=== PATIENT | female | born 1980 | race Two or more races ===

== ENCOUNTER 2018-07-11 11:13 | Emergency (ER) | payer OTHER ==
[2018-07-11] MEDS ORDERED: NORMAL SALINE 1000 ML 1,000 ML IV ONE (11:20)
[2018-07-11 11:36] LABS: ABSOLUTE BASOPHILS # (AUTO) 0.1 10^3/uL (0.0-0.2); ABSOLUTE EOSINOPHILS # (AUTO) 0.2 10^3/uL (0.0-0.6); ABSOLUTE LYMPHOCYTES (AUTO) 2.2 10^3/uL (0.5-4.7); ABSOLUTE MONOCYTES (AUTO) 1.2 10^3/uL (0.1-1.4); ABSOLUTE NEUT (AUTO) 4.2 10^3/uL (1.7-8.2); BASOPHILS % (AUTO) 0.7 % (0-2); EOSINOPHILS % (AUTO) 2.6 % (0-6); HEMOGLOBIN 10.9 g/dL (12.0-15.5); MEAN CORPUSCULAR HEMOGLOBIN 23.7 pg (27.0-33.4); MEAN CORPUSCULAR HGB CONC 32.9 g/dL (32.0-36.0); MEAN CORPUSCULAR VOLUME 72 fl (80-97); MONOCYTES % (AUTO) 15.5 % (3-13); PLATELET COUNT 211 10^3/uL (150-450); RED BLOOD COUNT 4.57 10^6/uL (3.72-5.28); RED CELL DISTRIBUTION WIDTH 17.7 % (11.5-14.0); SEGMENTED NEUTROPHILS % (AUTO) 53.2 % (42-78); TOTAL CELLS COUNTED % (AUTO) 100 %; WHITE BLOOD COUNT 7.8 10^3/uL (4.0-10.5)
[2018-07-11 11:55] LABS: ALANINE AMINOTRANSFERASE 23 U/L (9-52); ALBUMIN 4.3 g/dL (3.5-5.0); ALKALINE PHOSPHATASE 60 U/L (38-126); ANION GAP 10 (5-19); ASPARTATE AMINO TRANSFERASE 23 U/L (14-36); BILIRUBIN,DIRECT 0.1 mg/dL (0.0-0.4); BILIRUBIN,TOTAL 0.2 mg/dL (0.2-1.3); BLOOD UREA NITROGEN 13 mg/dL (7-20); CALCIUM 9.2 mg/dL (8.4-10.2); CARBON DIOXIDE 26 mmol/L (22-30); CHLORIDE 103 mmol/L (98-107); GLUCOSE 108 mg/dL (75-110); POTASSIUM 3.7 mmol/L (3.6-5.0); SODIUM 138.5 mmol/L (137-145)
[2018-07-11 13:16] LABS: APPEARANCE,URINE SLIGHTLY-CLOUDY; BILIRUBIN,URINE NEGATIVE (NEGATIVE); COLOR,URINE YELLOW; GLUCOSE, URINE NEGATIVE (NEGATIVE); KETONES,URINE NEGATIVE (NEGATIVE); LEUKOCYTE ESTERASE,URINE NEGATIVE (NEGATIVE); NITRITE,URINE NEGATIVE (NEGATIVE); PROTEIN,URINE NEGATIVE (NEGATIVE); URINE SPECIFIC GRAVITY 1.016; UROBILINOGEN,URINE NEGATIVE mg/dL (<2.0)
--- NOTE | 2018-07-11 13:30 | ER Document Report ---
ED General - General Chief Complaint: Syncope Stated Complaint: DIZZINESS Time Seen by Provider: 07/11/18 11:19 Notes: Patient is a 38-year-old female presents to the emergency department for syncope. Patient was observing a blood lab draw when she states she was standing. States she got lightheaded and dizzy had a generalized headache and sat down. States at that time she noted generalized weakness, staff around her stated she turned pale and had a syncopal episode. Staff states patient was potentially unresponsive for "only like 5 seconds." Patient states she has had generalized cough and congestion for the last 5 days. Is denying any fever, nausea, vomiting, diarrhea, dysuria, vaginal discharge. Patient states she does have a history of anemia typically takes iron and has been taking as prescribed. Patient is unsure of the last time she was at her primary care provider. Allergies: None Last menstrual period: 06/29/2018 TRAVEL OUTSIDE OF THE [place] IN LAST 30 DAYS: No Past Medical History - General Information source: Patient - Social History Smoking Status: Never Smoker Family History: Reviewed & Not Pertinent Review of Systems - Review of Systems Constitutional: See HPI EENT: See HPI Cardiovascular: See HPI Respiratory: See HPI Gastrointestinal: See HPI Genitourinary: See HPI Female Genitourinary: See HPI Musculoskeletal: No symptoms reported Skin: See HPI Hematologic/Lymphatic: See HPI Neurological/Psychological: See HPI Physical Exam - Notes Notes: GENERAL: Alert, interacts well. No acute distress. HEAD: Normocephalic, atraumatic. No frontal or maxillary sinus tenderness EYES: Pupils equal, round, and reactive to light. Extraocular movements intact. ENT: Oral mucosa moist, tongue midline. Nares patent, no nasal septal hematoma, TM's intact, Nonerythematous, nonbulging bilaterally. Pharynx within normal limits. NECK: Full range of motion. Supple. Trachea midline. no nuchal rigidity noted. LUNGS: Clear to auscultation bilaterally, no wheezes, rales, or rhonchi. No respiratory distress. HEART: Regular rate and rhythm. No murmur ABDOMEN: Soft, non-tender. Non-distended. Bowel sounds present in all 4 quadrants. EXTREMITIES: Moves all 4 extremities spontaneously. No edema, normal radial and dorsalis pedis pulses bilaterally. No cyanosis. BACK: no cervical, thoracic, lumbar midline tenderness. No saddle anesthesia, normal distal neurovascular exam. NEUROLOGICAL: Alert and oriented x3. Normal speech. cranial nerves II through XII grossly intact PSYCH: Normal affect, normal mood. SKIN: Pallor, cool, dry, normal turgor. No rashes or lesions noted. Course - Re-evaluation Re-evalutation: 07/11/18 13:28 Upon my initial examination patient did appear to be cool and pale. After fluid administration patient was noted to have color return to her face and she was now warm to touch. After fluid administration patient states she overall feels a lot better. Patient's labs showed no signs of leukocytosis. Her hemoglobin is at 10.9 with an MCV at 72 consistent with a microcytic anemia for which the patient states she takes iron for. Discussed continued close follow-up with primary care provider to trend those levels. Patient's labs show no signs of electrolyte abnormalities, hCG negative. Patient's urine shows a specific gravity of 1.016 with no ketones and no signs of urinary tract infection. Likely a vasovagal syncopal episode. Patient's EKG shows a sinus rhythm rate 63, QTc 435, no ST segment elevations or depressions noted Discussed labs and EKG with patient at bedside. Discussed close follow-up with primary care provider for her hemoglobin. Patient voices understanding, stable for discharge. - Laboratory Result Diagrams: 07/11/18 11:19 07/11/18 11:19 Laboratory results interpreted by me: 07/11/18 11:19 Hgb 10.9 L Hct 33.0 L MCV 72 L MCH 23.7 L RDW 17.7 H Monocytes % 15.5 H Discharge - Discharge Clinical Impression: Syncope Qualifiers: Syncope type: vasovagal syncope Qualified Code(s): R55 - Syncope and collapse Condition: Stable Disposition: HOME, SELF-CARE Instructions: Syncopal Episode ([facility]) Additional Instructions: As we discussed you have been seen and treated in the emergency department for a syncopal episode. Your labs do reveal a slight decrease in your hemoglobin. You are already taking iron for your anemia. These labs need to continue to be monitored by her primary care provider. Please stay well-hydrated and return to the emergency room should you have any other concern symptoms. Forms: Return to Work
[2018-07-11 14:00] VITALS: BP 112/78
--- NOTE | 2018-07-12 20:17 | EKG REPORT ---
SEVERITY:- OTHERWISE NORMAL ECG - SINUS RHYTHM LATERAL Q WAVES, PROBABLY NORMAL VARIATION : Confirmed by: Stewart Alexandre 12-Jul-2018 20:16:22
== END 2018-07-11 13:30 | disposition home or self-care (01) ==
LOC: ER 11:13
DX: R55 Syncope and collapse (principal); R05 Cough; D50.9 Iron deficiency anemia, unspecified; Z79.899 Other long term (current) drug therapy
CPT/HCPCS: 93005; 99284; 96360; 36415; 84703; 85025; 80053; 81001; 93010; J7030